=== PATIENT | female | born 1995 | race Two or more races ===

== ENCOUNTER 2024-08-15 06:13 | Inpatient (IN) | payer MEDICAID, OTHER ==
[~2024-08-15] VITALS: Ht 160 cm; Wt 81.6 kg
[2024-08-15] MEDS: LIDOCAINE 2%HCL (LOCAL ANESTH.) INJ 10ml MDV ONE (06:40)
[2024-08-15] MEDS: LIDOCAINE 2%HCL (LOCAL ANESTH.) INJ 20ML MDV ONE (06:40)
--- NOTE | 2024-08-15 07:07 | DVHHP2 ---
OB CC & HPI Date Date of Admission: Aug 15, 2024 Patient Identification: : 6 Para: 2 EDC: Aug 23, 2024 EGA: 39WKS Chief Complaints: Reason for admission: active labor Admission Nurse Assessment Rev: No History of Present Complaints PT PRESENTED IN ACTIVE LABOR,POS ROM AND PROGRESSED FROM 6CM TO 10 CM IN 20 MIN Past Medical History Cardiac: No pertinent Hx Pulmonary: No pertinent Hx Central Nervous System: No pertinent Hx GI: No pertinent Hx Hemotology/Oncology: No pertinent Hx Hepatobiliary: No pertinent Hx Psychiatric: No pertinent Hx Musculoskeletal: No pertinent Hx Rheumotologic: No pertinent Hx Infectious Disease: No peritnent Hx ENT: No pertinent Hx Renal/: No pertinent Hx Endocrine: No pertinent Hx Dermatology: No pertinent Hx Past Surgical History: No pertinent Hx OB History OB History Care: Limited Care Ultrasounds: No ultrasounds, Normal mid trimester US Obstetrical Complications: None Medical Complications: None Family & Social History Family/Social History Blood Type: Unknown Rubella: unknown RPR/VDRL: Unknown GBS Status: Unknown HBsAG: Unknown Review of Systems Constitutional: No symptom reported Ears, Nose, & Throat: No symptom reported Eyes: No symptom reported Pulmonary/Respiratory: No symptom reported Cardiovascular: No symptom reported Gastrointestinal: No symptom reported Genitourinary: No symptom reported Musculoskeletal: No symptom reported Skin: No symptom reported Psychiatric: No symptom reported Endocrine: No symptom reported Hemotologic/Lymphatic: No symptom reported OB Admission Exam Physical Exam HEENT: TMs Normal, Fontanelles Normal, Nasal Mucosa Normal, Eyes non-injected, Oropharynx Normal, PERRLA, Moist Membranes, EOMI Heart: Rhythm Normal Lungs: Clear Abdomen: Non tender Extremities: Normal Reflexes: Normal Cervical Dilatation: 10cm Effacement: 100% Station: +2 Membranes: Ruptured Amniotic Fluid: Clear Heart Rate: 130's Accelerations: Accelerations Present Decelerations: No Decelerations Short Term Variability: Present Jail Variability: Average (6-25) Contractions on Admission: < 5 Minutes Apart Intensity: Moderate OB Plan Plan Admitting Diagnosis: ACTIVE LABOR,IUP AT 39WKS LIMITED CARE Plan: Expectant Management Other Plan: INFORMED CONSENT OBTAINED HARVEY IVORY DO Aug 15, 2024 07:07
--- NOTE | 2024-08-15 07:08 | LDN2 ---
Labor and Delivery Note Date 08/15/24 Age 29 6 Para 3 AB 3 EDC 1-9 EGA 39WKS Diagnosis LABOR,LIMITED CARE Vaginal Delivery: VTX Vacuum Assisted: No Placenta: Spontaneous Sex: Female Apgars 8-9 Nuchal Cord Transected: No Amniotic Fluid: Clear Anesthesia XYLOCAINE Episiotomy: No Extension: Yes (1ST DGE PERINEAL LAC) Repaired with 2-0 CHROMIC EBL 300ML Complications NONE Conditions STABLE Comments/Significant Med Jess SPEC EXAM NO CXAL LAC HARVEY IVORY DO Aug 15, 2024 07:08
[2024-08-15 07:58] LABS: Urine Bacteria None Seen /hpf (None Seen)
[2024-08-15 08:21] LABS: Urine Blood Negative /uL (Negative); Urine Clarity Clear (Clear); Urine Color Light-Yellow (Yellow); Urine Mucus FEW (None Seen); Urine Protein, UAD Negative (Negative); Urine Specific Gravity 1.017 (1.001-1.035); Urine Squamous Epithelial Cell FEW /hpf (<5); Urine Urobilinogen Normal (Negative); Urine WBC 1 /hpf (0 - 5); Urine pH 6.5 (5.0-9.0)
[2024-08-15 08:26] LABS: Basophils # (auto) 0 10 ^3/uL (0-0.2); Basophils % (auto) 0.2 % (0.0-2.0); Eosinophils # (auto) 0 10 ^3/uL (0-0.8); Lymphocytes # (auto) 1.8 10 ^3/uL (0.4-5.4)
[2024-08-15 08:29] LABS: Cannabinoid Screen, Urine Pos (NEGATIVE)
[2024-08-15 08:29] LABS: Eosinophils % (auto) 0.3 % (0.0-7.0); Hematocrit 34.6 % (36.0-46.0); Hemoglobin 11.3 g/dL (12.2-16.2); Lymphocytes % (auto) 13.1 % (10.0-50.0); Mean Corpuscular Hemoglobin 26.8 pg (28.0-32.0); Mean Corpuscular Hgb Conc. 32.8 g/dL (32.0-36.0); Mean Corpuscular Volume 81.7 fL (80.0-100.0); Monocytes # (auto) 1.1 10 ^3/uL (0-1.3); Monocytes % (auto) 8.1 % (0.0-12.0); Neutrophils % (auto) 78.3 % (37.0-80.0); Nucleated Red Blood Cells % 0.1 %; Platelet Count (auto) 199 10^3/uL (140-450); Red Blood Cells 4.23 10^6/uL (4.0-5.20)
[2024-08-15 08:33] LABS: Albumin 3.4 g/dL (3.2-4.8); Anion Gap 10 (5-15); Aspartate Aminotransferase 18 U/L (13-40); BUN/Creatinine Ratio 8.2 (10.0-20.0); Calcium 9.2 mg/dL (8.7-10.4); Carbon Dioxide 22 mmol/L (20-31); Glucose 97 mg/dL (74-106); Potassium 3.7 mmol/L (3.5-5.1); Sodium 139 mmol/L (136-145); Total Protein 5.7 g/dL (5.7-8.2)
[2024-08-15 08:34] LABS: Opiate Scree,Urine Neg (NEGATIVE)
[2024-08-15 08:35] LABS: Amphetamine Screen, Urine Neg (NEGATIVE); Barbiturate Scree,Urine Neg (NEGATIVE); Benzodiazephine Screen, Urine Neg (NEGATIVE); Cocaine Screen, Urine Neg (NEGATIVE); Phencyclidine Screen, Urine Neg (NEGATIVE)
[2024-08-15 08:35] LABS: Alanine Aminotransferase < 9 U/L (7-40); Alkaline Phosphatase 130 U/L (46-116); Bilirubin, Total 0.2 mg/dL (0.2-1.0); Blood Urea Nitrogen 5 mg/dL (9-23); Chloride 107 mmol/L (98-107)
[2024-08-15 08:45] LABS: INR 0.98 (0.9-1.15); Partial Thromboplastin Time 27.1 SEC (24.5-34.5); Prothrombin Time 10.4 sec (9.3-11.8)
[2024-08-15] MEDS: DERMOPLAST 60ML BOTTLE TOP PRN (08:53)
[2024-08-15] MEDS: PHISODERM TOP SOLN 240ML BTL TOP PRN (08:53)
[2024-08-15] MEDS: WITCH HAZEL-GLYCERIN PAD TOP PRN (08:53)
[2024-08-15] MEDS: LIDOCAINE 2%HCL (LOCAL ANESTH.) INJ 20ML MDV IJ PRN (08:56)
[2024-08-15] MEDS: LACTATED RINGER'S 1,000 ML IV SCH (08:56)
[2024-08-15] MEDS: PENICILLIN G POT 5MIL/D5 50ML 50 ML IV ONE (08:56)
[2024-08-15] MEDS: LACT. RINGERS/OXYTOCIN 20UNITS 500 ML IV ONE ×2 (08:59→09:01)
[2024-08-15] MEDS: IBUPROFEN 600 MG TAB PO PRN (09:15)
[2024-08-15 10:45] VITALS: BP 117/74; PULSE 65; RESP 18; TEMP 98.3; O2SAT 99
[2024-08-15 15:00] VITALS: PULSE 60; RESP 18; TEMP 98; O2SAT 96
--- NOTE | 2024-08-15 18:32 | DVHINCON2 ---
Date of Service if different f: Aug 15, 2024 Consultation ([facility]) Labs Laboratory Tests Test 08/15/24 07:06 08/15/24 07:30 Urine Color Light-yellow (Yellow) Urine Clarity Clear (Clear) Urine pH 6.5 (5.0-9.0) Urine Specific Breeding 1.017 (1.001-1.035) Urine Protein Negative (Negative) Urine Ketones Trace (Negative) Urine Blood Negative /uL (Negative) Urine Nitrite Negative (Negative) Urine Bilirubin Negative (Negative) Urine Urobilinogen Normal mg/dL (Negative) Urine Leukocyte Esterase Negative /uL (Negative) Urine RBC 1 /hpf (0 - 4) Urine WBC 1 /hpf (0 - 5) Urine Squamous Epithelial Cells Few /hpf (<5) Urine Bacteria None seen /hpf (None Seen) Urine Mucus Few (None Seen) Urine Glucose Normal mg/dL (Normal) Urine Opiates Screen Neg (NEGATIVE) Urine Fentanyl Screen Neg (NEGATIVE) Urine Barbiturates Screen Neg (NEGATIVE) Urine Phencyclidine Screen Neg (NEGATIVE) Urine Amphetamines Screen Neg (NEGATIVE) Urine Benzodiazepines Screen Neg (NEGATIVE) Urine Cocaine Screen Neg (NEGATIVE) Urine Cannabinoids Screen Pos (NEGATIVE) White Blood Count 14.0 10^3/uL (4.4-10.8) Red Blood Count 4.23 10^6/uL (4.0-5.20) Hemoglobin 11.3 g/dL (12.2-16.2) Hematocrit 34.6 % (36.0-46.0) Mean Corpuscular Volume 81.7 fL (80.0-100.0) Mean Corpuscular Hemoglobin 26.8 pg (28.0-32.0) Mean Corpuscular Hemoglobin Concent 32.8 g/dL (32.0-36.0) Red Cell Distribution Width 16.0 % (11.8-14.3) Platelet Count 199 10^3/uL (140-450) Mean Platelet Volume 10.2 fL (6.9-10.8) Neutrophils (%) (Auto) 78.3 % (37.0-80.0) Lymphocytes (%) (Auto) 13.1 % (10.0-50.0) Monocytes (%) (Auto) 8.1 % (0.0-12.0) Eosinophils (%) (Auto) 0.3 % (0.0-7.0) Basophils (%) (Auto) 0.2 % (0.0-2.0) Neutrophils # (Auto) 11.0 10 ^3/uL (1.6-8.6) Lymphocytes # (Auto) 1.8 10 ^3/uL (0.4-5.4) Monocytes # (Auto) 1.1 10 ^3/uL (0-1.3) Eosinophils # (Auto) 0 10 ^3/uL (0-0.8) Basophils # (Auto) 0 10 ^3/uL (0-0.2) Nucleated Red Blood Cells 0.1 % Prothrombin Time 10.4 sec (9.3-11.8) Prothromb Time International Ratio 0.98 (0.9-1.15) Activated Partial Thromboplast Time 27.1 SEC (24.5-34.5) Sodium Level 139 mmol/L (136-145) Potassium Level 3.7 mmol/L (3.5-5.1) Chloride Level 107 mmol/L (98-107) Carbon Dioxide Level 22 mmol/L (20-31) Anion Gap 10 (5-15) Blood Urea Nitrogen 5 mg/dL (9-23) Creatinine 0.61 mg/dL (0.550-1.02) Glomerular Filtration Rate Calc 125 mL/min (>90) BUN/Creatinine Ratio 8.2 (10.0-20.0) Serum Glucose 97 mg/dL (74-106) Calcium Level 9.2 mg/dL (8.7-10.4) Total Bilirubin 0.2 mg/dL (0.2-1.0) Aspartate Amino Transf (AST/SGOT) 18 U/L (13-40) Alanine Aminotransferase (ALT/SGPT) < 9 U/L (7-40) Alkaline Phosphatase 130 U/L (46-116) Total Protein 5.7 g/dL (5.7-8.2) Albumin 3.4 g/dL (3.2-4.8) Hepatitis B Surface Antigen Negative (Negative) Hepatitis C Antibody Negative (Negative) HIV (1&2) Antibody Negative (Negative) Appetite: Fair Appearance: Stated age, Groomed, Clean Psychomotor activity: WNL Behavioral: Cooperative Eye contact: Appropriate Speech: WNL Affect: Appropriate Mood: Neutral Thought processes: Linear/Goal-directed Thought content: WNL Suicidal ideations: Absent Homicidal ideations: Absent Orientation: Person, Place, Time, Situation Memory intact: Recent Intellect: Average Abstractability: WNL Concentration: Adequate Attention: Adequate Judgement: WNL Insight: Fair Vitals Vital Signs Date Time Temp Pulse Resp B/P (MAP) Pulse Ox O2 Delivery O2 Flow Rate FiO2 08/15/24 15:00 98.0 60 18 96 98.0 08/15/24 09:00 Room Air Current medications Current Medications Medications Dose Ordered Sig/Dahiana Route Start Time Stop Time Status Last Admin Dose Admin Lactated Ringer's 1,000 ml @ 125 mls/hr Q8H IV 08/15/24 07:15 08/15/24 08:56 125 MLS/HR Witch Riana 1 pad PRN PRN TOP 08/15/24 07:15 08/15/24 08:53 1 PAD Sodium Lauryl Sulfate 240 ml PRN PRN TOP 08/15/24 07:15 08/15/24 08:53 240 ML Benzocaine 1 applic PRN PRN TOP 08/15/24 07:15 08/15/24 08:53 1 APPLIC Lidocaine HCl 20 ml ONCE PRN IJ 08/15/24 07:15 08/15/24 08:56 20 ML Ibuprofen 600 mg Q6HP PRN PO 08/15/24 07:15 08/15/24 09:15 600 MG Acetaminophen 650 mg Q4HP PRN PO 08/15/24 07:15 Medication adjusted: No Diagnosis: Bipolar disorder unspecified Plan : This is a 29-year-old who just delivered a baby girl and referred for high score on depression rating scale Pt currently denies Si/Hi and does not meet criteria for a hold. Recommend restart of psychotropic medication, antidepressant can induce graciela in bipolar patients, do not recommend using prozac Pt may discharge after medical clearance. Please provide available resources for outpatient follow up She may restart Risperdal 1mg po qhs, lamotrigine 25mg po qhs. weigh risk v benefits if pt plans to breastfeed History of Present Illness Reason for Consult : high score on the [place] depression scale HPI : This is a 29-year-old female with prior diagnosis of depression, anxiety, and bipolar disorder here after delivery of her third baby. Patient is evaluated via telepsychiatry. She reports hx of depression and psychotropic medications since age 19 after suicide attempt. She reports lately feeling numb then racing thoughts. She denies feeling depressed or hopeless. She does report baby was not planned, initially thought about adoption, father is not involved and wants nothing to do with him. She reports falling in love with her baby after seeing her. She reports stopping her medication in middle of her because she did not have transportation and unable to get to pharmacy. She reports close to end of self-medication with marijuana. 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 While using meth, she had psychosis such as paranoia and auditory hallucinations which went away after her sobriety. She reports hx of graciela symptom in the past-elevated mood, restlessness, trouble sleeping and eating then periods of depressed moods. Currently, she denies suicidal/homicidal ideation. She denies auditory/visual hallucinations or paranoia. She reports sleep is variable and having poor appetite currently. She denies hx of psychosis or depression. Past Psychiatric History : She reports 3 past psych admissions, last a few years ago. One suicide attempt at age of 19 with OD on pills. She did have a psychiatrist, stopped follow up a few months ago after moving from [place] to [place]. She does not have current outpatient follow up. She recalls most recently, use of Prozac, unsure of dose or other medications. 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 Past Medical History : She denies Social History : She is mom of 3, single not . She is unemployed. She reports receiving "[employer]" of $850 per month. She reports stable housing and living with a family friend. She was previously homeless with her first 2 children. Family history- mom with hx of bipolar ( 2 years ago). Maternal grandmother and aunt with schizophrenia. She uses marijuana occasionally. She denies other substances. SIOMARA STOKES DNP Aug 15, 2024 18:32
[2024-08-15 19:00] VITALS: BP 127/70; PULSE 68; RESP 16; TEMP 98.2; O2SAT 100
[2024-08-15] MEDS: ACETAMINOPHEN 325 MG TAB PO PRN (23:22)
[2024-08-15 23:24] VITALS: BP 129/83; PULSE 74; RESP 14; TEMP 98; O2SAT 99
[2024-08-16 03:15] VITALS: BP 117/69; PULSE 81; RESP 16; TEMP 98.7; O2SAT 98
[2024-08-16 11:30] VITALS: BP 126/76; PULSE 85; RESP 14; TEMP 98.5; O2SAT 99
[2024-08-16 12:15] LABS: Basophils # (auto) 0.1 10 ^3/uL (0-0.2); Basophils % (auto) 0.5 % (0.0-2.0); Eosinophils # (auto) 0 10 ^3/uL (0-0.8); Eosinophils % (auto) 0.3 % (0.0-7.0); Hematocrit 34.9 % (36.0-46.0); Hemoglobin 11.3 g/dL (12.2-16.2); Lymphocytes # (auto) 2.4 10 ^3/uL (0.4-5.4); Lymphocytes % (auto) 18.6 % (10.0-50.0); Mean Corpuscular Hemoglobin 26.4 pg (28.0-32.0); Mean Corpuscular Hgb Conc. 32.5 g/dL (32.0-36.0); Mean Corpuscular Volume 81.3 fL (80.0-100.0); Monocytes # (auto) 1.1 10 ^3/uL (0-1.3); Monocytes % (auto) 8.7 % (0.0-12.0); Neutrophils # (auto) 9.2 10 ^3/uL (1.6-8.6); Neutrophils % (auto) 71.9 % (37.0-80.0); Nucleated Red Blood Cells % 0.1 %; Platelet Count (auto) 211 10^3/uL (140-450); Red Blood Cells 4.29 10^6/uL (4.0-5.20); Red Cell Distribution Width 16.1 % (11.8-14.3); White Blood Cell 12.8 10^3/uL (4.4-10.8)
[2024-08-16 15:00] VITALS: BP 114/70; PULSE 67; RESP 16; TEMP 98.6; O2SAT 100
[2024-08-16 19:00] VITALS: BP 119/62; PULSE 77; RESP 16; TEMP 98.4
--- NOTE | 2024-08-16 20:00 | DVHPN2 ---
Progress Note Date Seen: Aug 16, 2024 Subjective S: bleeding is less, eating food without issues, denies lightheaded/dizziness, pain well controlled with oral medications, no concerns with urinating, passing flatus, no BM yet, ambulating well, for now but will change to formula when she goes home vital signs Vital Sign Date Time Temp Pulse Resp B/P (MAP) Pulse Ox O2 Delivery O2 Flow Rate FiO2 08/16/24 19:00 98.4 77 16 119/62 (81) 98.4 08/16/24 19:00 Room Air 08/16/24 15:00 100 Total Intake and Output 08/15/24 08/15/24 08/16/24 15:00 23:00 07:00 Intake Total 500 ml Output Total 1200 ml 500 ml Balance -1200 ml 0 ml medications Current Medications Medications Dose Ordered Sig/Dahiana Route Start Time Stop Time Status Last Admin Dose Admin Larisa Riana 1 pad PRN PRN TOP 08/15/24 07:15 08/15/24 08:53 1 PAD Sodium Lauryl Sulfate 240 ml PRN PRN TOP 08/15/24 07:15 08/15/24 08:53 240 ML Benzocaine 1 applic PRN PRN TOP 08/15/24 07:15 08/15/24 08:53 1 APPLIC Lidocaine HCl 20 ml ONCE PRN IJ 08/15/24 07:15 08/15/24 08:56 20 ML Ibuprofen 600 mg Q6HP PRN PO 08/15/24 07:15 08/16/24 11:34 600 MG Acetaminophen 650 mg Q4HP PRN PO 08/15/24 07:15 08/15/24 23:22 650 MG laboratory and microbiology Laboratory Tests 08/16/24 11:46 08/15/24 07:30 Test 08/15/24 07:30 Range/Units Serum Glucose 97 74-106 mg/dL Objective O: VSS Chest: heart sounds normal and lung sounds clear bilaterally Abd: soft, non-tender, fundus at U/firm/midline, active bowel sounds, no rebound or guarding Perineum: sutures intact, edges well approximated, no erythema/edema noted Ext: Non-tender, No edema, 2+ BLE DTRs Lochia: minimal See lab results Problems(with codes): (1) Bipolar disorder (2) (normal spontaneous vaginal delivery) (3) First degree perineal laceration during delivery Assessment/Plan A/P: 29yo now PPD#1 s/p -Continue with routine PP care -telepsych consult complete, Rx sent per recommendation -pending SW consult Plan discussed with: Patient RENE FLOREZ ROXANA Aug 16, 2024 20:00
[2024-08-16] MEDS ORDERED: IBU600T PO (20:01)
[2024-08-16] MEDS ORDERED: PREN-96 PO (20:01)
[2024-08-16] MEDS ORDERED: DOCU-94 PO (20:01)
[2024-08-16] MEDS: TETANUS-DIPTH-ACEL PERTUSSIS 0.5ML SYR Tdap IM ONE (20:28)
[2024-08-16] MEDS ORDERED: RISP1TAB63 PO (20:53)
[2024-08-16] MEDS ORDERED: LAMO25TA2 PO (20:53)
[2024-08-16] MEDS ORDERED: DOCUSATE SOD 100 MG CAP PO PRN (22:00)
[2024-08-16 23:00] VITALS: BP 112/61; PULSE 58; RESP 16; TEMP 97.8
[2024-08-17 02:06] LABS: Rubella Antibodies, IgG 1.06 index (Immune >0.99)
[2024-08-17 03:00] VITALS: BP 126/80; PULSE 64; RESP 16; TEMP 98.1; O2SAT 99
[2024-08-17 05:07] LABS: RPR Non Reactive (Non Reactive)
[2024-08-17 06:35] VITALS: BP 105/67; PULSE 60; RESP 15; TEMP 98.1; O2SAT 99
--- NOTE | 2024-08-17 07:15 | DVHDS2 ---
Obstetrics Discharge Summary Obstetrics Discharge Summary Date of Admission: Aug 15, 2024 Date of Discharge: Aug 17, 2024 Reason For Admission: Onset of Labor Procedures: NST Intrapartum Procedures: Spontaneous vaginal deliv Procedures: Hct/date: (08/16/24), Hgb/date: (08/16/24) Operative Complicat: Laceration (first degree perineal) Discharge Diagnosis: Term -Delivered Discharge Information: Activity (as tolerated, no heavy lifting and nothing in the vagina for 6 weeks), Diet (Routine), Medications (Rx sent), Instructions (Routine), Discharge to (Home), Accompanied by (family), Discarge date (08/17/24) RENE FLOREZ CNM Aug 17, 2024 07:15
--- NOTE | 2024-08-17 07:15 | DVHPN2 ---
Progress Note Date Seen: Aug 17, 2024 Subjective S: bleeding is less, eating food without issues, denies lightheaded/dizziness, pain well controlled with oral medications, no concerns with urinating, passing flatus, no BM yet, ambulating well, . Pt will be supplementing with formula when she is at home and wants to start taking the psych meds again. vital signs Vital Sign Date Time Temp Pulse Resp B/P (MAP) Pulse Ox O2 Delivery O2 Flow Rate FiO2 08/17/24 06:35 98.1 60 15 105/67 (80) 99 98.1 08/16/24 19:00 Room Air medications Current Medications Medications Dose Ordered Sig/Dahiana Route Start Time Stop Time Status Last Admin Dose Admin Witch Riana 1 pad PRN PRN TOP 08/15/24 07:15 08/15/24 08:53 1 PAD Sodium Lauryl Sulfate 240 ml PRN PRN TOP 08/15/24 07:15 08/15/24 08:53 240 ML Benzocaine 1 applic PRN PRN TOP 08/15/24 07:15 08/15/24 08:53 1 APPLIC Lidocaine HCl 20 ml ONCE PRN IJ 08/15/24 07:15 08/15/24 08:56 20 ML Ibuprofen 600 mg Q6HP PRN PO 08/15/24 07:15 08/16/24 20:24 600 MG Acetaminophen 650 mg Q4HP PRN PO 08/15/24 07:15 08/15/24 23:22 650 MG Docusate Sodium 200 mg DAILYPRN PRN PO 08/16/24 22:00 laboratory and microbiology Laboratory Tests 08/16/24 11:46 08/15/24 07:30 Test 08/15/24 07:30 Range/Units Serum Glucose 97 74-106 mg/dL Objective O: VSS Chest: heart sounds normal and lung sounds clear bilaterally Abd: soft, non-tender, fundus at U/firm/midline, active bowel sounds, no rebound or guarding Perineum: sutures intact, edges well approximated, no erythema/edema noted Ext: Non-tender, No edema, 2+ BLE DTRs Lochia: minimal See lab results Pt cleared to d/c home by Telepsych and social work coordinator. Problems(with codes): (1) Marijuana use (2) Bipolar disorder (3) (normal spontaneous vaginal delivery) (4) First degree perineal laceration during delivery Assessment/Plan A: 29yo now PPD#1 s/p Bipolar disorder Rh+ Pain control with PO medications Bowel regimen P: D/C home today Rx sent to pharmacy precautions and preeclampsia warning signs reviewed F/U with Dr. Nick in 2 weeks Plan discussed with: Patient RENE FLOREZ ROXANA Aug 17, 2024 07:15
[2024-08-17 13:06] LABS: Treponema Pallidum Ab LC Non Reactive (Non Reactive)
== END 2024-08-17 08:58 | disposition home or self-care (01) | DRG 560 ==
LOC: LDRP 06:13
PROVIDERS: ADMIT Obstetrics & Gynecology; ATTEND Obstetrics & Gynecology
PROC: 10E0XZZ Delivery of Products of Conception, External Approach (ICD-10-PCS; principal; 2024-08-15)
PROC: 0HQ9XZZ Repair Perineum Skin, External Approach (ICD-10-PCS; 2024-08-15)
DX: O70.0 First degree perineal laceration during delivery (principal); Z37.0 Single live birth; O99.344 Other mental disorders complicating childbirth; F31.9 Bipolar disorder, unspecified; Z56.0 Unemployment, unspecified; Z3A.39 39 weeks gestation of pregnancy; Z81.8 Family history of other mental and behavioral disorders
CPT/HCPCS: 36415; 59025; 59409; 80053; 80307; 81001; 85025; 85610; 85730; 86592; 86703; 86762; 86780; 86803; 86850; 86900; 86901; 87340; 90715; 94760; 96360; 96365; 96366; 96372; G0378; J2003